=== PATIENT | male | born 1990 | race African-American/Black ===

== ENCOUNTER 2017-10-11 14:13 | Emergency (ER) | payer SELFPAY ==
[~2017-10-11] VITALS: Ht 180.3 cm; Wt 70.0 kg
[~2017-10-11 14:13] MED LIST: AMOXICILLIN500 MG PO; BENADRYL 50MG C50 MG OR; CEPHALEXIN500 MG OR; CEPHALEXIN500 MG PO; FLEXERIL PO; MAG CITRATE OR; MEDDOSEPAK OR; NAPROSYN500 MG OR; NAPROSYN500 MG PO; NO HOME MEDS; PEPCID20 MG OR; PREDNISONE20 MG OR; PROAIR HFA IN; ZOFRAN ODT8 MG SL
[2017-10-11 14:44] LABS: INFLUENZA A NONE DETECTED (NONE DETECT); INFLUENZA B NONE DETECTED (NONE DETECT)
[2017-10-11 15:23] LABS: HEMATOCRIT 44.4 % (39.0-50.0); HEMOGLOBIN 14.8 g/dl (14.0-18.0); IMMATURE GRANULOCYTES 0.5 % (0.0-1.0); MEAN CELL VOLUME 85.7 fL CALC (80.0-100.0); MEAN CORPUSCULAR HGB 28.6 pG CALC (26.0-32.0); MEAN CORPUSCULAR HGB CONC 33.3 g/L CALC (32.0-36.0); NEUT# 4.04 thou/uL (1.82-7.42); RED BLOOD COUNT 5.18 mill/uL (4.70-6.10); RED CELL DISTRI WIDTH 12.9 % (11.5-15.5)
[2017-10-11 15:43] LABS: ANION GAP 15 (6-22 (CALC)); BUN 15 mg/dL (9-20); BUN/CREATININE RATIO 15 (12-20 (CALC)); CARBON DIOXIDE 26 mmol/l (22-30); CHLORIDE 106 mmol/l (95-108); GFR > 60 ML/MIN (>=60 (CALC)); GFR FOR AFR.AMER. > 60 ML/MIN (>=60 (CALC)); POTASSIUM 4.5 mmol/l (3.5-5.1); SODIUM 142 mmol/l (137-146)
[2017-10-11 16:15] VITALS: BP 132/88
== END 2017-10-11 16:16 | disposition home or self-care (01) | DRG 153 ==
LOC: ED 14:13
PROVIDERS: Family Medicine
DX: J06.9 Acute upper respiratory infection, unspecified (principal); F17.210 Nicotine dependence, cigarettes, uncomplicated

== ENCOUNTER 2018-06-25 09:20 | Emergency (ER) | payer SELFPAY ==
[~2018-06-25] VITALS: Ht 180.3 cm; Wt 60.0 kg
[2018-06-25] MEDS ORDERED: TORADOL PO (10:32)
[2018-06-25 10:44] VITALS: BP 118/66
== END 2018-06-25 10:44 | disposition home or self-care (01) | DRG 605 ==
LOC: ED 09:20
DX: S90.112A Contusion of left great toe without damage to nail, initial encounter (principal); F17.200 Nicotine dependence, unspecified, uncomplicated; W20.8XXA Other cause of strike by thrown, projected or falling object, initial encounter

== ENCOUNTER 2018-10-23 09:36 | Emergency (ER) | payer MEDICAID ==
[~2018-10-23] VITALS: Ht 180.3 cm; Wt 65.0 kg
[~2018-10-23 09:36] MED LIST changes: +TORADOL PO
[2018-10-23 10:13] LABS: HEMATOCRIT 48.5 % (39.0-50.0); HEMOGLOBIN 16.1 g/dl (14.0-18.0); IMMATURE GRANULOCYTES 0.6 % (0.0-5.0); MEAN CELL VOLUME 87.4 fL CALC (80.0-100.0); MEAN CORPUSCULAR HGB CONC 33.2 g/L CALC (32.0-36.0); NEUT# 6.52 thou/uL (1.82-7.42); RED BLOOD COUNT 5.55 mill/uL (4.70-6.10); RED CELL DISTRI WIDTH 12.5 % (11.5-15.5)
[2018-10-23 10:44] LABS: ALKALINE PHOSPHATASE 57 u/l (38-126); ANION GAP 14 (6-22 (CALC)); BILIRUBIN, TOTAL 0.5 mg/dL (0.0-1.4); BUN 15 mg/dL (9-20); BUN/CREATININE RATIO 13 (12-20 (CALC)); CARBON DIOXIDE 28 mmol/l (22-30); CHLORIDE 103 mmol/l (95-108); CREATININE 1.1 mg/dL (0.7-1.3); GFR > 60 ML/MIN (>=60 (CALC)); GFR FOR AFR.AMER. > 60 ML/MIN (>=60 (CALC)); LIPASE 95 u/l (23-300); POTASSIUM 4.5 mmol/l (3.5-5.1); SGOT/AST 25 u/l (17-59); SODIUM 141 mmol/l (137-146)
[2018-10-23 10:50] LABS: ALBUMIN 4.6 g/dL (3.2-5.0); TOTAL PROTEIN 7.7 g/dL (6.3-8.2)
[2018-10-23] MEDS ORDERED: ONDANSETRON4 MG PO (10:55)
[2018-10-23] MEDS ORDERED: PROTONIX40 M2 PO (10:55)
[2018-10-23 11:00] VITALS: BP 134/64
== END 2018-10-23 11:08 | disposition home or self-care (01) | DRG 392 ==
LOC: ED 09:36
PROVIDERS: Emergency Medicine
DX: R10.13 Epigastric pain (principal); R11.10 Vomiting, unspecified

== ENCOUNTER 2019-04-08 19:25 | Emergency (ER) | payer OTHER ==
[~2019-04-08] VITALS: Ht 180.3 cm; Wt 62.4 kg
[~2019-04-08 19:25] MED LIST changes: +ONDANSETRON4 MG PO; +PROTONIX40 M2 PO
[2019-04-08 20:43] LABS: URINE BILIRUBIN - DIPSTICK NEGATIVE (NEGATIVE); URINE BLOOD DIPSTICK NEGATIVE (NEGATIVE); URINE COLOR YELLOW; URINE GLUCOSE - DIPSTICK NEGATIVE (NEGATIVE); URINE KETONE NEGATIVE (NEGATIVE); URINE LEUK ESTERASE NEGATIVE (NEGATIVE); URINE NITRITE - DIPSTICK NEGATIVE (Negative); URINE PROTEIN - DIPSTICK 30 mg/dL (NEG-TRACE); URINE SPECIFIC GRAVITY >=1.030; URINE UROBILINOGEN - DIPSTICK 0.2 E.U./dL (0.2)
[2019-04-08 20:44] LABS: URINE RBC 0-2 RBC/hpf (0-5); URINE WBC 0-2 WBC/hpf (0-5)
[2019-04-08 20:45] LABS: URINE SPERM RARE hpf (NONE-RARE)
[2019-04-08] MEDS ORDERED: CEPHALEXIN500 M1 PO (21:09)
[2019-04-08] MEDS ORDERED: NAPROXEN500 MG PO (21:09)
[2019-04-08 21:29] VITALS: BP 132/78
== END 2019-04-08 21:29 | disposition home or self-care (01) ==
LOC: ED 19:25
PROVIDERS: Emergency Medicine
DX: N45.1 Epididymitis (principal); F17.200 Nicotine dependence, unspecified, uncomplicated